=== PATIENT | male | born 1960 | race Caucasian/White ===

== ENCOUNTER → 2020-12-30 | Outpatient (CLI) | payer OTHER ==
[~2020-12-30] MED LIST: ACET-1600 PO; AMLO-150 PO; ASPI-496 PO; CHOL500050 PO; IBUP-1221 PO; LEVO88TA2 PO; LORA10TA75 PO; METO50TA82 PO; ROSU5TAB PO; TAMS0.4C2 PO
== END | disposition home or self-care (01) ==
LOC: CFH 08:40
PROVIDERS: ATTEND Internal Medicine Cardiovascular Disease
DX: I05.1 Rheumatic mitral insufficiency (principal); I11.9 Hypertensive heart disease without heart failure; I05.8 Other rheumatic mitral valve diseases
CPT/HCPCS: 93306